=== PATIENT | female | born 1950 | race Caucasian/White ===

== ENCOUNTER 2025-04-22 05:57 | Day surgery (SDC) | payer MEDICARE, BC ==
[2025-04-22] MEDS: Sodium Chloride 0.9% 10 ML Syringe FLUSH PRN (06:45)
== END 2025-04-22 07:59 | disposition home or self-care (01) ==
LOC: JP.SDS 05:57
PROVIDERS: ATTEND Ophthalmology
DX: H25.11 Age-related nuclear cataract, right eye (principal); Z91.09 Other allergy status, other than to drugs and biological substances; Z79.899 Other long term (current) drug therapy
CPT/HCPCS: V2632